=== PATIENT | female | born 2000 | race Caucasian/White ===

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

== ENCOUNTER 2020-08-22 21:01 | Emergency (ER) | payer OTHER ==
--- NOTE | 2020-08-22 21:34 | XRAY Report ---
PROCEDURE: Chest 1 View X-Ray INDICATIONS: Chest pain TECHNIQUE: One view of the chest was acquired. COMPARISON: None. FINDINGS: Surgical changes and devices: None. Lungs and pleura: No pleural effusions or pneumothorax. Lungs are clear. Mediastinum: Mediastinal contours appear normal. Heart size is normal. Bones and chest wall: No suspicious bony lesions. Overlying soft tissues appear unremarkable. IMPRESSION: No pneumonia found, source of chest pain is not identified. Reviewed by: Dakota Washington MD on 08/22/2020 9:33 PM PDT Approved by: Dakota Washington MD on 08/22/2020 9:33 PM PDT Station ID: [id number]
[2020-08-22 21:39] LABS: BASOPHILS % (AUTO) 0.4 %; EOSINOPHILS # (AUTO) 0.1 10^3/uL (0.0-0.7); HGB - HEMOGLOBIN 13.8 g/dL (12.0-16.0); LYMPHOCYTES # (AUTO) 3.4 10^3/uL (1.5-3.5); LYMPHOCYTES % (AUTO) 34.6 %; MEAN CORPUSCULAR HEMOGLOBIN 26.5 pg (27.0-31.0); MEAN CORPUSCULAR HGB CONC 32.1 g/dL (32.0-36.0); MEAN CORPUSCULAR VOLUME 82.7 fL (81.0-99.0); MONOCYTES # (AUTO) 0.5 10^3/uL (0.0-1.0); MONOCYTES % (AUTO) 4.9 %; NEUTROPHILS # (AUTO) 5.7 10^3/uL (1.5-6.6); NEUTROPHILS % (AUTO) 58.7 %; PLT - PLATELET COUNT 331 10^3/uL (130-450); RED CELL DISTRIBUTION WIDTH 13.1 % (12.0-15.0); WHITE BLOOD COUNT 9.8 x10^3/uL (4.8-10.8)
--- NOTE | 2020-08-22 21:52 | ED Physician Documentation ---
History of Present Illness - Stated complaint Stated Complaint: TIGHTNESS IN CHEST - Chief complaint Chief Complaint: Cardiac - Additonal information Additional information: The patient presents with complaints of chest pain. This started at about 6:00 this evening. When asked where the pain was located she points to her left upper chest. She describes it as a pressure. She had some associated palpitations and shortness of breath. The pain radiated into both of her arms. She has had some tingling in her fingers as well. She acknowledges a history of anxiety and used to take medications for it. She denies calf pain or leg swel ling. She has had no cough. She has had no fevers, chills or sweats. Review of Systems Constitutional: reports: Reviewed and negative. denies: Fever, Chills, Myalgias, Fatigue, Weight Loss Eyes: reports: Reviewed and negative Ears: reports: Reviewed and negative Nose: reports: Reviewed and negative Throat: reports: Reviewed and negative Cardiac: reports: Chest pain / pressure, Palpitations, Reviewed and negative. denies: Pedal edema, Calf pain Respiratory: reports: Dyspnea, Reviewed and negative. denies: Cough, Wheezing GI: reports: Reviewed and negative. denies: Abdominal Pain, Nausea, Vomiting, Diarrhea : reports: Reviewed and negative. denies: Dysuria Skin: reports: Reviewed and negative Musculoskeletal: reports: Reviewed and negative Neurologic: reports: Reviewed and negative Psychiatric: reports: Anxiety PD PAST MEDICAL HISTORY - Past Medical History Cardiovascular: None Respiratory: None Endocrine/Autoimmune: None GI: None LIFELINE REPRESENTATIVES: None : None HEENT: None Psych: Depression Musculoskeletal: None Derm: None - Past Surgical History Past Surgical History: No - Allergies Allergies/Adverse Reactions: Allergies Allergy/AdvReac Type Severity Reaction Status Date / Time No Known Drug Allergies Allergy Verified 08/22/20 21:08 - Social History Does the pt smoke?: No Smoking Status: Never smoker Does the pt drink ETOH?: No Does the pt have substance abuse?: No - Immunizations Immunizations are current?: Yes - POLST Patient has POLST: No PD ED PE NORMAL - Vitals Vital signs reviewed: Yes - General General: No acute distress - HEENT HEENT: PERRL - Neck Neck: Supple, no meningeal sign - Cardiac Cardiac: RRR, No murmur - Respiratory Respiratory: Clear bilaterally - Abdomen Abdomen: Normal bowel sounds, Soft, Non tender, Non distended - Derm Derm: Warm and dry - Extremities Extremities: No deformity, No edema, No calf tenderness / cord - Psych Psych: Other (anxious) Results - Vitals Vitals: Vital Signs - 24 hr 08/22/20 21:08 Temperature 36.5 C Heart Rate 82 Respiratory 16 Rate Blood Pressure 142/78 H O2 Saturation 100 Oxygen O2 Source Room air - EKG (time done) 21:09 Rhythm: NSR Intervals: RBBB Other comments: Other comments - Labs Labs: Laboratory Tests 08/22/20 08/22/20 08/22/20 21:30 21:30 21:30 WBC 9.8 RBC 5.20 Hgb 13.8 Hct 43.0 MCV 82.7 MCH 26.5 L MCHC 32.1 RDW 13.1 Plt Count 331 MPV 11.0 H Neut # (Auto) 5.7 Lymph # (Auto) 3.4 [place] # (Auto) 0.5 Eos # (Auto) 0.1 Baso # (Auto) 0.0 Absolute Nucleated RBC 0.00 Nucleated RBC % 0.0 D-Dimer Sodium 140 Potassium 3.4 L Chloride 100 L Carbon Dioxide 26 Anion Gap 14.0 H BUN 14 Creatinine 0.7 Estimated GFR (MDRD) 106 Glucose 97 Calcium 9.4 Total Bilirubin 0.6 AST 19 ALT 17 Alkaline Phosphatase 66 Troponin I High Sens < 2.3 L Total Protein 8.3 H Albumin 4.6 Globulin 3.7 Albumin/Globulin Ratio 1.2 Lipase 30 08/22/20 21:30 WBC RBC Hgb Hct MCV MCH MCHC RDW Plt Count MPV Neut # (Auto) Lymph # (Auto) [place] # (Auto) Eos # (Auto) Baso # (Auto) Absolute Nucleated RBC Nucleated RBC % D-Dimer 217.8 Sodium Potassium Chloride Carbon Dioxide Anion Gap BUN Creatinine Estimated GFR (MDRD) Glucose Calcium Total Bilirubin AST ALT Alkaline Phosphatase Troponin I High Sens Total Protein Albumin Globulin Albumin/Globulin Ratio Lipase - Rads (name of study) 1 view chest x-ray. Radiology: Final report received, EMP read contemporaneously (No pneumonia found. Source of chest pain is not identified.) PD MEDICAL DECISION MAKING - ED course Complexity details: reviewed old records, reviewed results, re-evaluated patient, d/w patient, d/w family ED course: Clinically, the patient appears to suffer from anxiety. We discussed the pathophysiology of this. As noted, she has been treated for this in the past. I did suggest that she talk with her primary care provider about whether further treatment is warranted at this time. Departure - Departure Disposition: 01 Home, Self Care Clinical Impression: Anxiety Condition: Stable Instructions: ED Chest Pain NonCardiac, Anxiety Body Response Follow-Up: FAZAL VICTOR DO [Primary Care Provider] - Within 1 week
[2020-08-22 21:53] LABS: ALBUMIN 4.6 g/dL (3.2-5.5); ALBUMIN/GLOBULIN RATIO 1.2 (1.0-2.2); BILIRUBIN,TOTAL 0.6 mg/dL (0.2-1.0); CALCIUM 9.4 mg/dL (8.5-10.3); CREATININE 0.7 mg/dL (0.4-1.0); TOTAL PROTEIN 8.3 g/dL (6.7-8.2)
[2020-08-22 23:00] VITALS: BP 126/83
== END 2020-08-22 23:08 | disposition home or self-care (01) ==
LOC: ED 21:01
DX: F41.9 Anxiety disorder, unspecified (principal)
CPT/HCPCS: 36415; 71045; 80053; 83690; 84484; 85025; 85379; 93005; 99284

== ENCOUNTER 2021-04-16 08:02 | Emergency (ER) | payer MEDICAID, OTHER ==
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
--- NOTE | 2021-04-16 09:30 | CT Report ---
PROCEDURE: HEAD WO INDICATIONS: head injury headache TECHNIQUE: Noncontrast 4.5 mm thick angled axial sections acquired from the foramen magnum to the vertex. For r adiation dose reduction, the following was used: automated exposure control, adjustment of mA and/or kV according to patient size. COMPARISON: None. FINDINGS: Image quality: Excellent. CSF spaces: Basal cisterns are patent. No extra-axial fluid collections. Ventricles are normal in size and shape. Brain: No midline shift. No intracranial masses or hemorrhage. Quiñones-white matter interface is norm al. Skull and face: Calvarium and visualized facial bones are intact, without suspicious lesions. Sinuses: Visualized sinuses and mastoids are clear. IMPRESSION: Unremarkable head CT. No evidence acute stroke, hemorrhage, or mass. Reviewed by: Maxi Rodriguez MD on 04/16/2021 8:29 AM VITALIY Approved by: Maxi Rodriguez MD on 04/16/2021 8:29 AM VITALIY Station ID: [id number]
[2021-04-16 09:49] VITALS: BP 144/84
== END 2021-04-16 09:55 | disposition home or self-care (01) ==
LOC: ED 08:02
DX: S06.0X0A Concussion without loss of consciousness, initial encounter (principal); G44.319 Acute post-traumatic headache, not intractable; V43.62XA Car passenger injured in collision with other type car in traffic accident, initial encounter; Y92.410 Unspecified street and highway as the place of occurrence of the external cause; R00.0 Tachycardia, unspecified
CPT/HCPCS: 99284

== ENCOUNTER 2022-10-19 06:22 | Emergency (ER) | payer MEDICAID ==
[2022-10-19] MEDS ORDERED: SODIUM CHLORIDE 0.9% 1,000 ML IV STA (07:38)
[2022-10-19] MEDS ORDERED: KETOROLAC 30 MG/ML VIAL IVP STA (07:38)
[2022-10-19 07:54] LABS: ALBUMIN 4.3 g/dL (3.2-5.5); ALBUMIN/GLOBULIN RATIO 1.2 (1.0-2.2); BASOPHILS # (AUTO) 0.1 10^3/uL (0.0-0.1); BASOPHILS % (AUTO) 0.4 %; BILIRUBIN,TOTAL 0.9 mg/dL (0.2-1.0); CALCIUM 9.1 mg/dL (8.5-10.3); CREATININE 0.7 mg/dL (0.4-1.0); EOSINOPHILS # (AUTO) 0.1 10^3/uL (0.0-0.7); EOSINOPHILS % (AUTO) 0.4 %; HCT - HEMATOCRIT 41.9 % (37.0-47.0); HGB - HEMOGLOBIN 13.8 g/dL (12.0-16.0); LYMPHOCYTES # (AUTO) 1.5 10^3/uL (1.5-3.5); MEAN CORPUSCULAR HEMOGLOBIN 26.7 pg (27.0-31.0); MEAN CORPUSCULAR HGB CONC 32.9 g/dL (32.0-36.0); MEAN CORPUSCULAR VOLUME 81.2 fL (81.0-99.0); MEAN PLATELET VOLUME 10.8 fL (7.9-10.8); MONOCYTES # (AUTO) 1.1 10^3/uL (0.0-1.0); MONOCYTES % (AUTO) 9.6 %; NEUTROPHILS # (AUTO) 8.7 10^3/uL (1.5-6.6); NEUTROPHILS % (AUTO) 76.2 %; PLT - PLATELET COUNT 266 10^3/uL (130-450); RED BLOOD COUNT 5.16 10^6/uL (4.20-5.40); RED CELL DISTRIBUTION WIDTH 13.1 % (12.0-15.0); WHITE BLOOD COUNT 11.4 x10^3/uL (4.8-10.8)
--- NOTE | 2022-10-19 07:58 | XRAY Report ---
PROCEDURE: Chest 1 View X-Ray INDICATIONS: CP TECHNIQUE: One view of the chest was acquired. COMPARISON: Chest x-ray, 08/22/2020. FINDINGS: Surgical changes and devices: None. Lungs and pleura: No pleural effusions or pneumothorax. Lungs are clear. Mediastinum: Mediastinal contours appear normal. Heart size is normal. Bones and chest wall: No suspicious bony lesions. Overlying soft tissues appear unremarkable. IMPRESSION: No acute cardiopulmonary disease. Reviewed by: Dmitry Castillo MD on 10/19/2022 7:57 AM PST Approved by: Dmitry Castillo MD on 10/19/2022 7:57 AM PST Station ID: [id number]
[2022-10-19 09:49] VITALS: BP 127/91
--- NOTE | 2022-10-19 09:54 | ED Physician Documentation ---
PD HPI CHEST PAIN - Stated complaint Stated Complaint: CHEST PX/HEAD PX - Chief complaint Chief Complaint: Cardiac - History obtained from History obtained from: Patient - Additional information Additional information: Patient is a 22-year-old female with no significant past medical history presenting for evaluation of chest pain that she feels in the middle of her chest along with palpitations of her heart racing. Her symptoms started in the middle of the night around 2:00 in the morning.She does have a nonproductive cough. She denies feeling short of breath. Nothing makes her symptoms better or worse. She has had similar presentations in the past that she has attributed to anxiety. She denies a history of hypertension, hyperlipidemia, diabetes or family history of early coronary artery disease. Denies history of PE or DVT. Review of Systems Constitutional: denies: Fever Nose: denies: Congestion Cardiac: reports: Chest pain / pressure, Palpitations Respiratory: denies: Dyspnea GI: denies: Abdominal Pain Musculoskeletal: denies: Back pain Neurologic: denies: Headache PD PAST MEDICAL HISTORY - Past Medical History Cardiovascular: None Respiratory: None Endocrine/Autoimmune: None GI: None CHILDCARE WORKER: None : None HEENT: None Psych: Depression Musculoskeletal: None Derm: None - Past Surgical History Past Surgical History: No - Present Medications Home Medications: Ambulatory Orders Medication Instructions Recorded Confirmed No Known Home Medications 04/16/21 04/16/21 - Allergies Allergies/Adverse Reactions: Allergies Allergy/AdvReac Type Severity Reaction Status Date / Time No Known Drug Allergies Allergy Verified 10/19/22 06:36 - Social History Does the pt smoke?: No Smoking Status: Never smoker Does the pt drink ETOH?: No Does the pt have substance abuse?: No - Immunizations Immunizations are current?: Yes - POLST Patient has POLST: No PD ED PE NORMAL - General General: Alert and oriented X 3, No acute distress, Well developed/nourished - HEENT HEENT: Atraumatic - Neck Neck: Supple, no meningeal sign - Cardiac Cardiac: Other (Tachycardic, regular rhythm) - Respiratory Respiratory: No respiratory distress, Clear bilaterally - Abdomen Abdomen: Soft, Non tender, Non distended - Derm Derm: Warm and dry - Extremities Extremities: No edema, No calf tenderness / cord Results - Vitals Vitals: Vital Signs - 24 hr 10/19/22 10/19/22 10/19/22 06:33 09:48 09:56 Temperature 37.1 C 36.5 C Heart Rate 126 H 99 109 H Respiratory 18 20 23 Rate Blood Pressure 137/85 H 127/91 H 127/91 H O2 Saturation 98 99 99 Oxygen O2 Source Room air - EKG (time done) 0628 Rate: Rate (enter#) (124) Rhythm: Sinus tachycardia [place]: Normal Ischemia: No: ST elevation c/w ischemia - Labs Labs: Laboratory Tests 10/19/22 10/19/22 10/19/22 07:33 07:33 07:33 WBC 11.4 H RBC 5.16 Hgb 13.8 Hct 41.9 MCV 81.2 MCH 26.7 L MCHC 32.9 RDW 13.1 Plt Count 266 MPV 10.8 Neut # (Auto) 8.7 H Lymph # (Auto) 1.5 [place] # (Auto) 1.1 H Eos # (Auto) 0.1 Baso # (Auto) 0.1 Absolute Nucleated RBC 0.00 Nucleated RBC % 0.0 D-Dimer < 200.0 L Sodium 135 Potassium 4.0 Chloride 101 Carbon Dioxide 25 Anion Gap 9.0 BUN 12 Creatinine 0.7 Estimated GFR (MDRD) 104 Glucose 101 H Calcium 9.1 Total Bilirubin 0.9 AST 26 ALT 35 Alkaline Phosphatase 72 Troponin I High Sens Total Protein 8.0 Albumin 4.3 Globulin 3.7 Albumin/Globulin Ratio 1.2 SARS-CoV-2 (PCR) 10/19/22 10/19/22 07:33 08:55 WBC RBC Hgb Hct MCV MCH MCHC RDW Plt Count MPV Neut # (Auto) Lymph # (Auto) [place] # (Auto) Eos # (Auto) Baso # (Auto) Absolute Nucleated RBC Nucleated RBC % D-Dimer Sodium Potassium Chloride Carbon Dioxide Anion Gap BUN Creatinine Estimated GFR (MDRD) Glucose Calcium Total Bilirubin AST ALT Alkaline Phosphatase Troponin I High Sens < 2.3 L Total Protein Albumin Globulin Albumin/Globulin Ratio SARS-CoV-2 (PCR) NOT DETECTED PD Medical Decision Making - ED course ED course: Patient presenting for evaluation of chest pain and palpitations. She is low risk for ACS. Because of her tachycardia I cannot apply PERC criteria. Her EKG is a sinus rhythm. Her troponin is negative in the setting of having pain greater than 5 hours.Her D-dimer is negative. Patient says that she started feeling immediate bit better when she got the IV fluids. Her chest x-ray is clear. COVID test is pending. At this time I feel she is appropriate for discharge as her vital signs have stabilized And she is feeling much better. Patient counseled on the need for close follow-up with her primary care doctor. Departure - Departure Disposition: 01 Home, Self Care Clinical Impression: Chest pain, Cough Condition: Stable Instructions: ED Chest Pain Atypical Unkn Cause Follow-Up: Shreya Morgan PA-C [Provider Admit Priv/Credential] - Comments: Your evaluated for chest pain and a racing heart. The exact cause of your chest pain is unclear but does not appear to be from A heart attack or blood clot in your lungs. Your chest x-ray is clear. Your COVID test is pending. We will contact you if this is positive.I would recommend follow-up with your primary care doctor specially in regards to your palpitations.I have listed the name of 1 that you can contact. If anytime you have any worsening symptoms such as worsening pain, shortness of breath or any concerns please consider return to the emergency department. Discharge Date/Time: 10/19/22 10:00
== END 2022-10-19 10:00 | disposition home or self-care (01) ==
LOC: ED 06:22
DX: R07.9 Chest pain, unspecified (principal); R00.0 Tachycardia, unspecified; R00.2 Palpitations; R05.9 Cough, unspecified; Z20.822 Contact with and (suspected) exposure to COVID-19
CPT/HCPCS: 36415; 80053; 84484; 85025; 85379; 93005; 96361; 96374; 99282